=== PATIENT | female | born 1990 | race Caucasian/White ===

== ENCOUNTER 2022-05-09 13:01 | Outpatient (RCR) | payer OTHER, SELFPAY | END 2023-04-17 08:42 | disposition home or self-care (01) | PROVIDERS: PCP Family Medicine; Visit Provider Orthopaedic Surgery Sports Medicine | DX: M75.111 Incomplete rotator cuff tear or rupture of right shoulder, not specified as traumatic (principal); M25.511 Pain in right shoulder; Z51.89 Encounter for other specified aftercare | CPT/HCPCS: 97110; 97530 ==

== ENCOUNTER 2023-10-03 08:15 | Outpatient (RCR) | payer OTHER, SELFPAY | END 2024-01-01 11:02 | disposition home or self-care (01) | PROVIDERS: PCP Family Medicine; Visit Provider Family Medicine | DX: S83.242A Other tear of medial meniscus, current injury, left knee, initial encounter (principal); M25.562 Pain in left knee; Z51.89 Encounter for other specified aftercare | CPT/HCPCS: 97035; 97110; 97140; 97161; J2371 ==